=== PATIENT | female | born 1995 | race Caucasian/White ===

== ENCOUNTER 2017-11-24 22:31 | Emergency (ER) | payer SELFPAY ==
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
== END 2017-11-24 23:10 | disposition home or self-care (01) ==
LOC: EDBD 22:31 → MW.ED 22:31
DX: Z02.89 Encounter for other administrative examinations (principal)
CPT/HCPCS: 99282; 99283

== ENCOUNTER 2018-01-18 20:38 | Emergency (ER) | payer MEDICAID, OTHER ==
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
== END 2018-01-18 23:13 | disposition home or self-care (01) ==
LOC: MW.ED 20:38
DX: S00.03XA Contusion of scalp, initial encounter (principal); W10.9XXA Fall (on) (from) unspecified stairs and steps, initial encounter
CPT/HCPCS: 70450; 70450-26; 72125; 72125-26; 81001; 81025; 99283-25